=== PATIENT | female | born 1965 | race Caucasian/White ===

== ENCOUNTER 2024-10-04 08:52 | Inpatient (IN) | payer OTHER, SELFPAY ==
[2024-10-04] VITALS (59 sets, daily range): BP systolic 102–165; BP diastolic 60–96; BMI 30.6
[2024-10-04 06:24] LABS: Hematocrit 40.6 % (37.0-47.0); Hemoglobin 13.5 g/dL (12.0-16.0); Mean Corp Hgb Conc. 33.3 g/dL (33.0-37.0); Mean Corpuscular Volume 84.9 fL (81.0-99.0); Platelet Count 278 10^3/uL (130-400); Red Cell Dist. Width 13.2 % (11.5-14.5)
[2024-10-04 06:25] LABS: INR 0.94; PT 12.8 Sec (11.4-14.6)
--- NOTE | 2024-10-04 06:25 | ED.CVA ---
History of Present Illness
General
Chief Complaint: CVA/TIA Symptoms
Source: patient and spouse
Exam Limitations: none
Time Seen by Provider: 10/04/24 05:51
Onset of Stroke Symptoms
Onset of symptoms known: Yes
Date of onset of symptoms: 10/04/24
Time of onset of symptoms: 03:00
History of Present Illness
History of Present Illness:
58-year-old healthy female went to bed at midnight. Was fine at that time. Went to go to the bathroom around 3 or 3:30 in the morning noted some weakness and tingling to the left arm. By the time she got back to bed she had weakness in the left
leg and noted a left facial droop. She watched this for 45 minutes to an hour. Then talk to her who realized she had a left facial droop and called the ambulance at about 430. Symptoms improved significantly and route to the hospital and
then recurred. She now notes very minimal symptoms except for some tingling to the left arm. No history of similar episodes.
Past History
Past History
ED Past Medical History: Other (Sciatica); Negative Asthma, HTN, Hypercholesterolemia or NIDDM
ED Past Surgical History: None
Social History
Tobacco: Non-smoker
Alcohol: Occasional
Personal:
Living: with family
Employment: Employed
Phy Exam
Physical Exam
Physical Exam:
GENERAL: Alert and oriented in no apparent distress
EYE: Orbits normal.
NECK: Supple, no significant adenopathy.
ENT: Pharynx without erythema
CARDIAC: Regular rate and rhythm without any obvious murmurs.
LUNGS: Clear breath sounds,normal
ABDOMEN: Soft, without focal tenderness or distention
NEUROLOGICAL: Alert and oriented , grossly non-focal. Cranial nerves II through XII intact. Speech normal. No drift. Koakkk-oo-ykra normal. Eye confrontation normal. Extraocular muscles intact. Iidi-tr-cgzs normal. Straight leg raising
normal. Light touch intact. No extinction.
SKIN: Warm and dry, no rash or lesion, no discoloration, skin intact.
MUSCULOSKELETAL: No edema,no deformity.Good color
PSYCH: Normal and appropriate interaction.
Scores
NIH Stroke Score
Level of Consciousness: 0 - Alert
LOC Questions: 0-Answers both correctly
LOC Commands: 0-Performs both correctly
Best Horizontal Gaze: 0-Normal
Visual Cook: 0=Normal, no visual loss
Facial Palsy: 0=Normal, symmetrical
Motor - Right Arm: 0=No drift 10 seconds
Motor - Left Arm: 0=No drift 10 seconds
Motor - Right Le-No drift 5 seconds
Motor - Left Le-No drift 5 seconds
Limb Ataxia: 0-Absent
Sensation: 0-Normal
Best Language: 0-No aphasia
Dysarthria: 0-Normal
Extinction and Inattention: 0-No abnormality
NIH Total Score:: 0
Course
Orders/Labs/Results
Orders:
Orders
10/04/24 05:33
CT HEAD STROKE ALERT W/o Cont Urgent
Comment:
Reason For Exam: stroke alert
CT HEAD/NECK ANG STROKE ALERT Urgent
Comment:
Reason For Exam: pre hospital stroke alert
10/04/24 05:37
CT BRAIN PERF STROKE ALERT Urgent
Comment:
Reason For Exam: pre hospital stroke alert
10/04/24 05:49
Electrocardiogram (*1) Urgent
Reason for Study: Other
Other Reason for Exam: Possible Stroke
Bedside Glucose- Treatment ONCE
Cardiac Monitoring- Treatment ONCE
IV Insert/Care/Rem.- Treatment PRN
Vital Signs As Directed
Frequency: Other
Weight As Directed
Frequency: Once
Comment: ZERO STRETCHER SCALE FOR ACCURATE WEIGHT
10/04/24 05:50
EKG- Treatment ONCE
10/04/24 06:01
Complete Blood Count/With Diff Urgent
Comprehensive Metabolic Panel Urgent
PTT Urgent
Prothrombin Time Urgent
Troponin I Urgent
10/04/24 06:30
Aspirin Chewable [Low Strength Aspirin] 324 mg PO NOW STA
10/04/24 07:00
Clopidogrel Bisulfate [Plavix] 600 mg PO NOW STA
10/04/24 08:24
Tenecteplase [Tnkase] 20 mg Syringe [Syringe Non-Pump] 0 ml IV NOW
Provider explained risk/benefits to patient &/or caregiver?: Yes
Blood pressure: 130/78
10/04/24 08:42
Admit/Transfer Patient As Directed
Co-Sign Provider:
Level of Care: Inpatient admission
Assign to:: ICU
Physician / Group: Nirmal
Diagnosis: Crescendo TIA
Reason for Hospitalization: See progress note
Expected length of stay greater than two midnights?: Yes
ELOS- Estimated Length of Stay in days: 3
I certify the patient meets the requirements for IP care: Yes
Code Status As Directed
Resuscitation Status: Full Code
PRN Pain Medication Management As Directed
May give lesser potent ordered pain med per pt: Yes
preference::
Protocol:: Medication orders for pain may be administered in a
manner that supports deferring to patient preference
when the pt is:
- Requesting an ordered lesser potent pain medication.
Least to most potent pain medications are defined
as: acetaminophen < NSAID < tramadol < opioids
(morphine, oxycodone, hydromorphone).
- Requesting a lesser dose of the same medication IF
ORDERED.
- Requesting a less intrusive route of administration
if both routes are prescribed by the provider (PO <
IV).
10/04/24 09:15
Acetaminophen [Tylenol] 650 mg PO Q4HPRN PRN
Labetalol HCl [Trandate] 5 mg IV Q6HPRN PRN
10/04/24 09:15
Echo 2D MMode Color/Doppler Routine
Reason for Study: stroke/TIA
Electrocardiogram (*1) Routine
Reason for Study: TIA/Stroke
Case Management Consult Once
Case Management Consult: Discharge Planning
DIETARY IP CONSULT Routine
Reason for Consult: stroke/TIA
Telephone Maintainer Consult Routine
Consulting Provider: Garcia Jones
Was physician already notified: Yes
Reason for consult: Post TPA tx
NEUROLOGY CONSULT Urgent
Consulting Provider: Walker Macdonald
Was physician already notified: Yes
Reason for consult: TIA
Flakeboard Line Tender Urgent
MR Brain Without Contrast Routine
Comment: complete 24 hrs post tenecteplase administration
Reason For Exam: possible stroke, status post tenecteplase
Recent pill cam endoscopy?: No
Hemetest Stools As Directed
Comment: hemoccult all stools if patient received tenecteplase
NIH Stroke Scale As Directed
Directions: Other
Comment: NIH stroke Scale to be completed prior to thrombolytic administration, then every 1 hour for 2
hours, then every shift and with change in condition and/or mental status.
Neurological Checks As Directed
Frequency: Per unit guidelines
Additional Instructions:: after start of thrombolytic therapy:
q15min x 2 hrs, q30min x 6 hrs, q1h x 16 hrs, q4h x 24 hrs, then every shift and
with any changes.
Notify MD As Directed
Notify physician if: - Any deterioration, change in neurological status, development of severe headache,
nausea and vomiting, or with any signs of bleeding. (see guidelines for suspected
intracerebral hemorrhage).
- If intracranial hemorrhage is suspected or confirmed by imaging, anticipate need for
osmotic diuretic to maintain euvolemia.
Notify MD As Directed
Notify physician if: Glucose less than 70 or greater than 180.
Anticipate corrective insulin orders.
Notify MD As Directed
Notify physician if: SBP not at goal within 30 minutes of prn LABETALOL administration.
notify provider to initiate continuous infusion of nicardipine or clevidipine.
Notify MD As Directed
Notify physician if: unable to obtain MRI of head within 22-32 hours of tenecteplase administration
- contact Neurology for order for CT of head without contrast
Patient Education As Directed
Type: Stroke education packet
Comment: provide to patient and family
Precautions As Directed
Type of Precautions: Bleeding
Comment: post Bleeding Precaution sign at bedside (if patient received tenecteplase)
Swallow Screening CVA/TIA ONLY As Directed
Comment: NPO until swallow screening completed
If patient FAILS swallow screening:: NPO and Speech consult and aspiration precautions
If patient PASSES swallow screening, diet:: Cholesterol Lowering
Thrombolytic Precautions As Directed
Thrombolytic Precautions:: Baylis bleeding precautions. Minimize invasive procedures and venipunctures,
avoid IM injections and over-handling patient, and check all puncture sites for
bleeding. Assess the patient and notify provider for signs and symptoms of
internal or serious bleeding, such as changes in vital signs or evidence of blood
in the urine or stool.
Additional instructions: Hemocult all stools.
Apply direct pressure or pressure dressing to any compressible puncture sites.
No ABG sampling or Dawson insertion after Tenecteplase administration for 24 hours,
unless directed by the Neurologist/Attending.
Vital Signs As Directed
Frequency: q15m
Call for:: BP greater than 180/105 mmHg or less than 100/60 mmHg
Additional Instructions:: after start of thrombolytic therapy:
q15min x 2 hrs, q30min x 6 hrs, q1h x 16 hrs, q4h x 24 hrs, then every shift and
with any changes.
CR Chest - 2 Views Urgent
Comment:
Reason For Exam: stroke/TIA
Ot Eval And Treat Routine
Physiatry Consult Routine
Consulting Provider: Tapan Carrasco
Was physician already notified: Yes
Reason for consult: stroke/TIA
Pt Eval And Treat Routine
Activity Level: As Tolerated
Speech Therapy Eval & Treat Routine
DX Deep Vein Thrombosis Video Routine
10/05/24 06:00
Basic Metabolic Panel IN AM
Cardiovascular Evaluation IN AM
Complete Blood Count/No Diff IN AM
Glycohemoglobin (HgbA1c) IN AM
Comment: If not done in the ED
PTT IN AM
Prothrombin Time IN AM
10/05/24 08:42
Pneumatic Compression Sleeves As Directed
Type: Knee high
Abnormal Lab Results
10/04/24
06:01
Absolute Lymphs (auto) 5.3 H 10^3/uL
(1.2-3.4)
Neutrophils % 36.2 L %
(42.2-75.2)
Lymphocytes % 53.9 H %
(20.5-51.1)
Sodium 134 L mmol/L
(135-145)
Glucose 100 H mg/dl
(70-99)
Total Protein 5.7 L g/dl
(6.3-8.2)
10/04/24 06:01
10/04/24 06:01
Vital Signs
Initial and Last Documented VS:
Initial Vital Signs
BP
153/77
10/04/24 05:34
Last Documented Vital Signs
Temp Pulse Resp BP Pulse Ox
98.2 F 62 15 152/85 97
10/04/24 06:28 10/04/24 10:00 10/04/24 10:00 10/04/24 10:00 10/04/24 10:00
MDM/Problems Addressed
Differential Diagnosis Includes:
Patient presenting with waxing and waning strokelike symptoms. Currently her NIH is 0 to me though although subjectively she has some tingling in the left arm. At this time would not be a thrombolytic candidate. Head CT shows no bleed. I had
contacted pending further involvement.
*Pulse Oximetry
Oxygen Mode of Delivery: Room air
Patient hypoxic: no (98)
*Critical Care Note
Total Time (30-74mins, 75-104mins- exclusive of procedures): 50
Update Note
Update Note:
0650... While discussing with pain and recontacting them, patient symptoms recurred with a mild left facial droop left arm weakness and mild left leg weakness. While I was discussing with Esvin he symptoms actually resolved again. Very waxing and
waning symptoms. This was a wake-up issue at 3 AM with left arm symptoms followed by core progression of the left leg and left facial and speech issues. Moderate plaque with 50 to 70% narrowing.
0720... Multiple phone calls placed with our neurology, or hospitalist, previous calls with Esvin. Currently her NIH is 0. She does have some subjective tingling to the left arm but she appears well. Stable vital signs.
0825... Patient was seen by neurology. Her symptoms had recurred again about 15 to 20 minutes ago. NIH is about 3. Slight left facial droop left arm drift and slight left leg drift. With ongoing waxing and waning symptoms neurology recommended
TNK. There has been multiple discussions and patient and family are aware of the 5% bleed rate.
ED Attending Note
-
Portions of this chart may have been created with voice recognition software.� Occasional wrong word or��sound alike� substitutions may have occurred due to the inherent limitations of voice recognition software.
Discharge Plan
Departure
Patient Disposition: Admit
Date of Disposition: 10/04/24
Time of Disposition: 07:13
Presentation/result/management discussed w/ accepting MD/DO: neuro
Discharge Problem:
CVA/crescendo TIA, Moderate carotid disease
Interventions
Interventions:
*General Assessment Last Done: 10/04/24 06:16
*Neglect/Abuse Screening Last Done: 10/04/24 06:16
*ED- Fall Risk Assessment Last Done: 10/04/24 06:18
*ED COVID-19 Vaccine History Last Done: 10/04/24 07:07
*Nursing Disposition Last Done: 10/04/24 09:10
ED- Pulmonary Assessment Last Done: 10/04/24 06:10
ED- Neurological Assessment Last Done: 10/04/24 08:26
ED- Cardiac Assessment Last Done: 10/04/24 06:10
ED Swallowing Screen Last Done: 10/04/24 06:26
Discharge Date and Time
Discharge Date/Time: 10/04/24 09:10
[2024-10-04 06:26] LABS: APTT 29.8 Sec (23.4-35.0)
[2024-10-04 06:37] LABS: ALT (SGPT) 12 U/L (0-35); AST (SGOT) 20 U/L (14-36); Albumin 3.6 g/dl (3.5-5.0); Alkaline Phosphatase 57 U/L (38-126); Blood Urea Nitrogen 17 mg/dl (7-17); Calcium 8.6 mg/dl (8.4-10.2); Carbon Dioxide 24 mmol/L (22-30); Chloride 104 mmol/L (98-107); Glucose 100 mg/dl (70-99); Potassium 4.3 mmol/L (3.5-5.1); Sodium 134 mmol/L (135-145); Total Protein 5.7 g/dl (6.3-8.2); eGFR > 60.00
[2024-10-04] MEDS: LOW STRENGTH ASPIRIN 324 MG PO (06:41)
[2024-10-04 06:44] LABS: Troponin I < 0.012 ng/ml
[2024-10-04] MEDS: PLAVIX 600 MG PO (07:04)
[2024-10-04 07:55] LABS: Nucleated Red Blood Cells % 0 %
--- NOTE | 2024-10-04 08:10 | CON.NEURO ---
Neuro Assessment/Plan
Assessment
CTA head/neck imgs and rept rev'd, mild atherosclerotic plaque on b/l extracranial carotids, moderate plaque b/l intracranial carotids, mild beaded appearance suggestive of mild fibromuscular dysplasia - absence of HTN history
CT perfusion core 0, penumbra 0
58 year old healthy woman crescendo TIA. this would most likely represent a vessel that is partly/intermittently occluding and opening up again, and is an imminent stroke risk
with her now worsening again, decision to treat with TNK ~8:05 am
this is based on new data from last year, demonstrating benefit with TNK in the 4.5-24 hr window based on favorable CTP findings
in her case, 0 cc core infarct at risk of bleeding
Plan
Admit to MICU for 24 hours of frequent neurochecks.�
neurochecks q1, Frequent vital signs Q15min x 2hrs, then Q30min x 6hrs, then Q1H x 16hrs until stable from the start of TNK.�
�tele, accuchecks/ISS. Repeat Head CT in 24 hours
Blood pressure goals: <180/105 and MAP 80-100� in the acute period.� If BP elevated for 2 readings, preferred agents include IV labetalol or nicardipine.� Vasopressors as necessary to maintain MAP and CPP.�
Glucose goals: Maintain euglycemia using sliding scale insulin. If glucose >180 for two consecutive readings, please use MICU insulin protocol.�
Temperature goals: maintain normothermia�
Diagnostic tests: MRI brain without contrast, ECHO with bubble.�
35' crit examining patient, reviewing imaging, discussing risks/benefits of TNK, independently reviewing imaging, discussing with Dr Dukes,
Consultation
Order
Date of Consultation: 10/04/24
Requesting Provider: Ernst
Reason for Consult: stroke alert
Subjective/Objective
Subjective Data
Date of Service: October 04, 2024
from ED notes:
58-year-old healthy female went to bed at midnight. Was fine at that time. Went to go to the bathroom around 3 or 3:30 in the morning noted some weakness and tingling to the left arm. By the time she got back to bed she had weakness in the left
leg and noted a left facial droop. She watched this for 45 minutes to an hour. Then talk to her who realized she had a left facial droop and called the ambulance at about 430. Symptoms improved significantly and route to the hospital and
then recurred. She now notes very minimal symptoms except for some tingling to the left arm. No history of similar episodes.
5:58 am Chun reported that patient no LVO, perfusion no core infarct, no penumbra, was discussed with the [place] neuro intervention felt not to be a thrombectomy candidate
her symptoms worsened and essentially resolved multiple times. I spoke to Dr Dukes ~7:15 am and patient subjectively symptomatic, NIHSS 0. She received ASA and Plavix.
~7:55 am patient reports her symptoms began worsening again, NIHSS 3 to my exam, and we decided to give TNK for diagnosis of crescendo tia
Objective Data
Vital Signs
Temp Pulse Resp BP Pulse Ox
36.8 C 68 15 130/78 98
10/04/24 06:28 10/04/24 06:56 10/04/24 06:56 10/04/24 06:56 10/04/24 06:56
Lab Results
10/04/24 06:01
10/04/24 06:01
PT 12.8 Sec (11.4-14.6) 10/04/24 06:01
INR 0.94 10/04/24 06:01
APTT 29.8 Sec (23.4-35.0) 10/04/24 06:01
Sodium 134 mmol/L (135-145) L 10/04/24 06:01
Potassium 4.3 mmol/L (3.5-5.1) 10/04/24 06:01
BUN 17 mg/dl (7-17) 10/04/24 06:01
Glucose 100 mg/dl (70-99) H 10/04/24 06:01
Calcium 8.6 mg/dl (8.4-10.2) 10/04/24 06:01
Patient Allergies
No Known Allergies Allergy (Verified 08/19/20 16:52)
CVA Assessment
Onset of Stroke Symptoms
Time pt last seen normal is known: Yes
Date last time pt seen normal: 10/04/24
Time last time pt seen normal: 00:00
NIH Stroke Score
Level of Consciousness: 0 - Alert
LOC Questions: 0-Answers both correctly
LOC Commands: 0-Performs both correctly
Best Horizontal Gaze: 0-Normal
Visual Cook: 0=Normal, no visual loss
Facial Palsy: 1=Minor paralysis
Motor - Right Arm: 0=No drift 10 seconds
Motor - Left Arm: 1=Drift < 10 seconds
Motor - Right Le-No drift 5 seconds
Motor - Left Le-Drift < 5 seconds
Limb Ataxia: 0-Absent
Sensation: 0-Normal
Best Language: 0-No aphasia
Dysarthria: 0-Normal
Extinction and Inattention: 0-No abnormality
NIH Total Score:: 3
Physical Exam
-
AAOx3
left facial droop
left arm and leg 5-/5, right side full strength
sensation intact
Medications
-
Active Medications
Generic Name Dose Route Start Last Admin
Trade Name Freq PRN Reason Stop Dose Admin
Tenecteplase 20 mg/ Device 4 mls @ 2,880 mls/hr 10/04/24 08:04
IV 10/04/24 08:05
NOW STA
Protocol
Home Medications
�Medication �Instructions �Recorded
oxycodone-acetaminophen 5 mg-325 1 tab PO Q6HPRN PRN pain #20 tabs 03/21/20
mg tablet
prednisone 20 mg tablet 40 mg (2 x 20 mg) PO DAILY 08/19/20
Anti-inflammatory #8 tabs
[2024-10-04] MEDS: TNKASE 4 MG IV (08:34)
--- NOTE | 2024-10-04 08:45 | HPS.HSE ---
Family Physician
-
Family Physician: Isaac Baum
Chief Complaint
-
Left-sided heaviness and tingling with left facial droop
History of Present Illness
58-year-old with no active medical issues presented with acute onset of neurological symptoms.
She went to bed okay. She got up at around 3:00 AM today and she thinks she felt the left arm was heavy. She used the right arm to get herself up and went to the bathroom. She was okay on the feet.
When she came back onto the bed she felt her left leg was heavy and she was trying to rub it with the right leg. She started to get panicky and started to mumble. Called her and asked him to check her out if anything is abnormal and he saw
the left side of the face was droopy.
He called the ambulance. By the time ambulance came her symptoms mostly resolved.
She developed similar symptoms in the ER and resolved again. Since that incident in the ER she says she has recurrent similar complaints 3 times now.
Seen by neurology just now who noticed the left face to be droopy which is confirmed by the patient and the . She felt that her left arm was still heavy. The left leg is okay.
She had a CT of the head which did not show any bleeding. She had a CT of the head and neck which showed no retrobulbar clot.
Decision was made by neurology for tenecteplase due to crescendo TIA and the current NIH being 3.
No headache. No vision problem. No speech impairment.
No prior history of TIA or stroke. No recent head trauma. Right-handed.
No recent medical issues. She has chronic back pain issues and had low back surgery.
Medical History
Past Medical History
Past Medical History: Reports None
Past Surgical History: Reports Orthopedic (Low back surgery)
Social History
Tobacco: Non-smoker
Alcohol: None
Personal:
Living: With Family
Family History
Family History: Not pertinent
Allergies / Home Medications
Allergies reflects when Allergies were last updated in [facility].
Home Medications with original date entered in [facility]
Allergy/Medication List:
Allergies
Allergy/AdvReac Type Severity Reaction Status Date / Time
No Known Allergies Allergy Verified 08/19/20 16:52
Home Medications
oxycodone-acetaminophen 5 mg-325 mg tablet 1 tab PO Q6HPRN PRN pain #20 tabs 03/21/20
prednisone 20 mg tablet 40 mg (2 x 20 mg) PO DAILY Anti-inflammatory #8 tabs 08/19/20
Review of Systems
-
A 12 point ROS was completed and negative except as noted: Yes
Physical Exam
Vital Signs
Vital Signs
Temp Pulse Resp BP Pulse Ox
98.2 F 68 16 133/78 98
10/04/24 06:28 10/04/24 08:35 10/04/24 08:35 10/04/24 08:35 10/04/24 06:56
Physical Exam
General: Comfortable
HEENT: Moist mucous membranes
Respiratory: Clear and Non Labored Respirations; No Accessory Resp Muscle Use
Cardiac: S1/S2 and Regular Rhythm; No Tachycardia
GI: Soft, Non Tender and No Hepatosplenomegaly
Musculoskeletal: No Edema
Neuro: AO x 3 and Facial Droop (mild left facial ); No No Motor Deficits (left hand cement worker 4+/5 compared to right which was 5/5; BL LE 5/5 . Plantars equivocal BL. )
Psych: Calm; No Confused
Laboratory Results
-
10/04/24 06:01
10/04/24 06:01
Laboratory Results
PT 12.8 Sec (11.4-14.6) 10/04/24 06:01
INR 0.94 10/04/24 06:01
APTT 29.8 Sec (23.4-35.0) 10/04/24 06:01
Total Bilirubin 0.3 mg/dl (0.2-1.3) 10/04/24 06:01
AST 20 U/L (14-36) 10/04/24 06:01
ALT 12 U/L (0-35) 10/04/24 06:01
Alkaline Phosphatase 57 U/L (38-126) 10/04/24 06:01
Troponin I < 0.012 ng/ml 10/04/24 06:01
Data Reviewed
-
CT Scan: Report Reviewed by me (CT head;CTA head and neck)
Lab Data: Labs Reviewed by me
Impression/Plan
-
Crescendo TIA
Patient presents with recurrent episodes of TIA so far 5 involving the left facial droop and left upper and lower extremity heaviness and weakness. NIH is [address] of the head shows no evidence of stroke. CTA of the head and neck shows bilateral intracranial ICA narrowing of 50 to 70% but no evidence of large vessel occlusion. CT perfusion is okay.
Condition made for thrombolysis. Tenecteplase given in the ER.
Admit to ICU and follow-up post thrombolysis protocol. Hold aspirin and Plavix for 24 hours. No lab draws for 24 hours. Follow blood pressure closely and treat more than 185/105.
Continuous avionic technician.
MRI of the brain without contrast when able today
Start on high intensity statins
Echocardiogram routine
Watch for any bleeding complication.
Neurology consultation
DVT prophylaxis - none for 24hr ;pt received Tenecteplase
--- NOTE | 2024-10-04 09:10 | CM ---
Addendum entered by Jenna Perry 10/04/24 11:54:
Advance directive packet provided to patient.
Original Note:
CM reviewed chart and met with pt and daughter bedside in ED. Lives with in trilevel home, no NANCY, 5 steps to main level with half BA, approximately 13 total steps to third level BR, full BA.
Independent in ADLs, personal care and ambulation at baseline, drives.
Confirms prescription coverage.
No hx VN or SNF.
PCP: Isaac Baum
Pharmacy: [facility]
Anticipate discharge home, CM will continue to follow for any discharge planning needs
--- NOTE | 2024-10-04 09:40 | CON.INTV ---
Consultation
Consultation Request
Date/Time Consultation Requested: 10/04
Date/Time Consultation Performed: 10/04
Reason for Consultation: Critical care
Medical History
-
History of Present Illness:
History obtained from the patient and reviewing medical records/ER records. Patient is a 58-year-old female who presented with acute onset of weakness and tingling in the left arm. She then noticed left leg weakness and then a left facial droop
around 3:30 in the morning. She observed this for about 45 minutes, and then called the ambulance at around 4:30 AM. Symptoms improved en route but then recurred. Upon arrival to [facility], afebrile, pulse 68, breathing at 15, blood
pressure 157/77, 98%. NIH 0 but symptoms appear to progress with waxing and waning symptoms. Patient was seen by neurology, symptoms recurred, NH3. Neurology recommended TNK which was administered at around 8:05 AM. Patient admitted to ICU for
further management
Of note, imaging reviewed. Comment on 50 to 70% intracranial ICA stenosis bilateral, beaded appearance noted. No cerebral parenchymal abnormality
Presently, patient denies any shortness of breath, chest pain, nausea, headaches, vision issues. She continues to have waxing and waning left arm tingling and heaviness but denies left lower extremity symptoms, and there does not appear to be any
facial droop at this time
.
PMH: History of sciatica, history of lower back surgery
Past Medical History
Past Medical History: None (See above)
Past Surgical History: None (See above)
Social History
Tobacco: Non-smoker
Alcohol: Occasional
Drug: None
Personal:
Living: With Family
Employment: Employed (Helps clean houses for the elderly)
Family History
Family History: Other (Unremarkable)
Allergies / Home Medications
Allergies
Allergy/AdvReac Type Severity Reaction Status Date / Time
No Known Allergies Allergy Verified 08/19/20 16:52
Home Medications
�Medication �Instructions �Recorded �Confirmed �Last Taken �Type
oxycodone-acetaminophen 5 mg-325 1 tab PO Q6HPRN PRN pain #20 tabs 03/21/20 Unknown Rx
mg tablet
prednisone 20 mg tablet 40 mg (2 x 20 mg) PO DAILY 08/19/20 Unknown Rx
Anti-inflammatory #8 tabs
Review of Systems
-
All other systems: Negative unless noted
Vitals / Labs / Diagnostic Testing
Vital Signs
Temp Pulse Resp BP Pulse Ox
98.2 F 60 16 133/63 98
10/04/24 06:28 10/04/24 09:05 10/04/24 09:05 10/04/24 09:05 10/04/24 06:56
Lab Data
10/04/24 06:01
10/04/24 06:01
Laboratory Results
10/04/24
06:01
PT 12.8
INR 0.94
APTT 29.8
Diagnostic Testing:
Physical Exam
-
HEENT: Normocephalic and Anicteric
Cardiovascular: S1/S2, Regular Rhythm, Murmur (n), Rub (n), Peripheral Edema (n) and Calf Tenderness (n)
Respiratory: Wheeze (n), Rales (n), Rhonchi (n) and Non-Labored Respirations
GI: Soft, Non Distended and Non Tender
Neurology: Awake, Alert and No Motor Deficits (Cannot appreciate any focal findings, cranial nerves appear to be grossly intact)
Skin: Good Color
General: Comfortable
Assessment
-
58-year-old female without medical history presents with acute onset left arm tingling/heaviness/weakness along with left leg weakness, left facial droop, waxing and waning started around 3:30 AM
Given progressive symptoms, TNK was administered at approximately 8:05 AM, admitted to ICU for further monitoring
Crescendo TIA
Imminent stroke risk per neuro
S/p TNK approx 805 am per neuro
Left arm weakness/tingling
Intermittent left lower extremity symptoms
Intermittent left facial droop
50 to 70% bilateral ICA stenosis
Beaded appearance per imaging
Conditions present prior to admission
History of sciatica
History of back surgery
Plan/recommendations
At this time, patient appears to have waxing and waning symptoms
Presently without headaches, nausea, vision changes
She does have some waxing and waning left arm tingling and heaviness
No facial droop on exam at this time
Imaging reviewed
Moving forward
Continue with management post TNK
Neurochecks
Await repeat imaging in 24 hours
Check blood sugar
Monitor blood pressure
Sequential teds for DVT prophylaxis
Monitor for bleeding
Reviewed with critical care nursing
Reviewed with patient
Will follow
TCCT 31 min
--- NOTE | 2024-10-04 09:49 | TRANSFER ---
Pt rec'd into ICU Room 3362 from ED at 09:15, pulled over to bed. Handoff NIHSS performed with ED RN, score 0. Pt AOx3. Oriented to room and plan of care. Neuro checks per protocol ongoing, see worklist. Admission and assessment as documented.
Daughter at bedside. Care ongoing, safe environment maintained.
[2024-10-04 10:33] LABS: Glucose - Point of Care 95 mg/dl (70-99)
--- NOTE | 2024-10-04 11:20 | PTOTSP ---
Speech Therapy Evaluation
Pt seen for bedside swallow evaluation and cognitive-communication assessment. Pt admitted with dx of crescendo TIA. Recurrent episodes of TIA with L sided facial droop and L upper/lower extremity heaviness. Results of oral motor exam reveal
adequate strength, ROM, and coordination of oral structures with no observable L sided weakness. Pt managed regular solids and thin liquids with no overt s/sx of aspiration. Per pt report, L sided weakness comes and goes. Pt educated on
recommendation of regular solids and thin liquids given no facial weakness/numbness and adherence to general aspiration precautions.
Pt scored 26/30 on MOCA (25-30 described as normal) yielding skills that are within functional limits. Pt demonstrated mild visuospatial deficits, including connecting number/letter in an alternating pattern and copying a cube. Pt engaged in
conversation with no apparent word finding, dysarthria, or apraxia of speech. No phonemic or semantic paraphasias.�
Recommendations:
1. IDDSI 7 regular solids, IDDSI 0 thin liquids
2. Meds as tolerated
3. General aspiration precautions
4. Speech f/up x1-2 to ensure tolerance of regular solids and thin liquids as pt reports intermittent facial tingling/weakness which was not observed during evaluation
--- NOTE | 2024-10-04 15:09 | PTCARENOTE ---
Pt remains AOx3, NIHSS and neuro checks ongoing, please see flowsheet. No complaints at this time. Pt visiting with family at bedside, ate 100% of lunch tray, now watching TV. MRI dept called up to inform RN that they would like to scan pt between
7-7:30 tomorrow am. Pt is extremely nervous about MRI and endorses claustrophobia. Drs. Jones and Nirmal notified via TT. Safe environment maintained.
--- NOTE | 2024-10-04 15:27 | PTCARENOTE ---
Scattered bruising to right arm noted, one on forearm and 3 on upper right arm. Pt does not recall hitting it or bumping it. BP cuff has been on left arm since before noon. Will continue to monitor.
--- NOTE | 2024-10-04 21:05 | PTCARENOTE ---
Handoff report received from off going RN. Dual RN NIHSS assessment completed. NIH 0. Symmetrical smile and tongue midline. Speech is clear. Plan of care for the shift reviewed with the patient. Patient verbalized concerns with MRI and feeling
anxious. Teaching provided and prn order reviewed with the patient for MRI. LESLIE x4. NSR on the monitor. Breath sounds are CTA. Scattered bruises to bilateral upper arms. Pt's able to turn and reposition herself. Call ng and personal belonging are
within reach.
[2024-10-05] VITALS (27 sets, daily range): BP systolic 105–162; BP diastolic 58–99; PULSE 66–68; BMI 30.5
[2024-10-05 05:18] LABS: Hematocrit 38.0 % (37.0-47.0); Hemoglobin 12.7 g/dL (12.0-16.0); Mean Corp Hgb Conc. 33.4 g/dL (33.0-37.0); Mean Corpuscular Volume 84.8 fL (81.0-99.0); Platelet Count 283 10^3/uL (130-400); Red Cell Dist. Width 13.3 % (11.5-14.5)
[2024-10-05 05:31] LABS: INR 0.99; PT 13.4 Sec (11.4-14.6)
[2024-10-05 05:32] LABS: APTT 28.8 Sec (23.4-35.0)
[2024-10-05 06:32] LABS: Blood Urea Nitrogen 15 mg/dl (7-17); Calcium 9.3 mg/dl (8.4-10.2); Carbon Dioxide 26 mmol/L (22-30); Chloride 110 mmol/L (98-107); Estimated Creatinine Clearance 106 ml/min; Glucose 95 mg/dl (70-99); HDL Cholesterol 66 mg/dl; LDL Cholesterol, Calculated 160 mg/dl; Potassium 4.5 mmol/L (3.5-5.1); Sodium 140 mmol/L (135-145); Very Low Density Lipoprotein 22 mg/dl (0-30); eGFR > 60.00
[2024-10-05] MEDS: ATIVAN 1 MG PO (06:34)
--- NOTE | 2024-10-05 07:15 | W.PN.INTV ---
Today's Communication / Plan
Recommendations
Continue with risk factor modification for stroke
Consider outpatient HST
Statin, antiplatelet therapy continue
Blood sugars, blood pressure stable
For transfer out of ICU. We will sign off. Please call with questions
Assessment
-
58-year-old female without medical history presents with acute onset left arm tingling/heaviness/weakness along with left leg weakness, left facial droop, waxing and waning started around 3:30 AM
Given progressive symptoms, TNK was administered at approximately 8:05 AM, admitted to ICU for further monitoring
Crescendo TIA
Imminent stroke risk per neuro
S/p TNK approx 805 am per neuro
Left arm weakness/tingling
Intermittent left lower extremity symptoms
Intermittent left facial droop
50 to 70% bilateral ICA stenosis
Beaded appearance per imaging
Conditions present prior to admission
History of sciatica
History of back surgery
Plan/recommendations
At this time, patient feels she is back to her baseline
Presently without headaches, nausea, vision changes
Denies any neurological symptoms
No facial droop on exam at this time
Brain MRI pending
Moving forward
Continue with management post TNK
Await report of brain MRI
Blood sugar, blood pressure stable
Sequential teds for DVT prophylaxis
Monitor for bleeding
Discussed potential for sleep apnea screening as outpatient, home sleep study
This will be deferred to her primary physician
Patient transferred to telemetry. We will sign off. Please call with questions
Subjective Dataa
Subjective Data
Date of Service:
Date of Service: October 05, 2024
Subjective:
Patient feels good. Denies any shortness of breath, chest pain, headaches. Denies any blood in urine or stool
Objective Data
Data Reviewed
Vital Signs / I&O / Oxygen:
Vital Signs
Temp Pulse Resp BP Pulse Ox
98.6 F 58 15 132/69 95
10/05/24 03:07 10/05/24 07:00 10/05/24 07:00 10/05/24 07:00 10/04/24 19:20
Intake and Output
10/04/24 10/05/24 10/06/24
06:59 06:59 06:59
Intake Total 358 / 358
Output Total 1275 / 1275
Balance -917 / -917
SaO2 95
Physical Exam
General: Comfortable
HEENT: Normocephalic and Anicteric
Cardiovascular: S1-S2, Regular Rhythm, Murmur (n) and Rub (n)
Respiratory: Wheeze (n), Crackles (n), Rhonchi and Non-Labored Respirations
GI: Soft and Distended
Neurology: Awake, Alert and No Motor Deficits (Moving extremities)
Skin: Good Color, Cyanosis (n) and Bruising (Mild)
Labs/Micro/Reports
Lab Data
10/05/24 05:05
10/05/24 06:00
Laboratory Results
10/05/24
05:05
PT 13.4
INR 0.99
APTT 28.8
--- NOTE | 2024-10-05 08:35 | PTCARENOTE ---
Pt was rec'd in report from night RN, NIHSS and neuro checks ongoing per protocol, see flowsheet. Pt was given Ativan as ordered at 06:30. She is AOx3 calm and comfortable, states 'this is a very nice feeling!' Pt transported to MRI dept by RN at
07:30. Tolerated well, returned to room, placed back on tele monitor, now ordering breakfast. NIHSS performed, score 0. Call ng in hand, no needs at this time.
--- NOTE | 2024-10-05 08:54 | W.PN.HOSP.TC ---
Today's Communication/Plan
-
Transfer to telemetry this afternoon
Assessment / Plan
Assessment / Plan
Crescendo TIA
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
Patient presents with recurrent episodes of TIA so far 5 involving the left facial droop and left upper and lower extremity heaviness and weakness. NIH is [address] of the head shows no evidence of stroke. CTA of the head and neck shows bilateral intracranial ICA narrowing of 50 to 70% but no evidence of large vessel occlusion. CT perfusion is okay.
Condition made for thrombolysis. Tenecteplase given in the ER.
No complication post tenecteplase so far.
MRI of the brain done report pending.
Bumped into neurology on the floor who recommends 325 mg of aspirin as arthrosclerosis involves larger arteries and Plavix 75 mg. He also recommends 90 days instead of 21 days because of large vessel intracranial atherosclerosis.
Continuous phototypesetting equipment monitor.
Start on high intensity statins
Echocardiogram routine
Transferred to telemetry
DVT prophylaxis -Lovenox
Discussed with HAMMERER HELPER
Total time spent on today's encounter was 52 minutes which included time spent in counseling the patient/family regarding diagnosis and treatment plan as listed above, goals of care, and symptom management. Case was discussed with nursing staff,
specialists, and care coordinators/case management. All labs and imaging personally reviewed by me. Remainder the time spent in detailed review of previous records, lab data, imaging, and other medical provider documentation.
Anticipated Discharge: 24 - 48 hours
Subjective/Interval History
-
Date of Service: October 05, 2024
Resolved neurological symptoms without recurrence.
She tells me today that that she cooks with olive oil, butter and coconut oil and was wondering if that has any relation to her hyperlipidemia. Advised to eliminate butter and coconut oil use with cooking.
No headache.
No nausea vomiting.
No shortness of breath or chest pain.
No dizziness.
Objective Data
-
Labs:
Laboratory Results
10/05/24 10/05/24
05:05 06:00
WBC 9.3
Hgb 12.7
Hct 38.0
Plt Count 283
PT 13.4
INR 0.99
APTT 28.8
Sodium Cancelled 140
Potassium Cancelled 4.5
Chloride Cancelled 110 H
Carbon Dioxide Cancelled 26
BUN Cancelled 15
Creatinine Cancelled 0.6
Glucose Cancelled 95
Calcium Cancelled 9.3
Vital Signs:
Vital Signs
Temp Pulse Resp BP Pulse Ox
98.6 F 61 11 122/68 95
10/05/24 03:07 10/05/24 08:35 10/05/24 08:35 10/05/24 08:35 10/04/24 19:20
I&O
10/04/24 10/05/24 10/06/24
06:59 06:59 06:59
Intake Total 358 / 358
Output Total 1275 / 1275
Balance -917 / -917
Physical Exam
-
General: Comfortable
Respiratory: Non Labored Respirations; Negative Accessory Resp Muscle Use
Cardiac: Regular Rhythm and S1/S2; Negative Tachycardic
Neuro: AO x 3; Negative No Motor Deficits, Slurred Speech or Facial Droop (today)
Psych: Calm; Negative Confused
Data Reviewed
-
MRI: Report Reviewed by me (MRI brain pending)
Labs: Labs Reviewed by me
--- NOTE | 2024-10-05 09:26 | CM ---
patient seen at bedside
Transfer to telemetry this afternoon
PT/OT/ST ordered/pending
PLAN: home, CM to follow for any needs
[2024-10-05] MEDS: ASPIRIN 325 MG PO (09:36)
[2024-10-05] MEDS: PLAVIX 75 MG PO (09:36)
--- NOTE | 2024-10-05 09:44 | PTCARENOTE ---
Telemetry orders rec'd, pt placed on portable heart monitor.
--- NOTE | 2024-10-05 10:59 | W.PN.NEURO.1 ---
Today's Communication / Plan
-
downgrade
Neuro Assessment/Plan
Assessment
CTA head/neck imgs and rept rev'd, mild atherosclerotic plaque on b/l extracranial carotids, moderate plaque b/l intracranial carotids, mild beaded appearance suggestive of mild fibromuscular dysplasia - absence of HTN history
CT perfusion core 0, penumbra 0
MRI brain imgs rev'd, no evidence of acute stroke, report pending
HDL 66, LDL 160
58 year old healthy woman crescendo TIA, resolved after TNK
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
Plan
with large vessel disease, rx ASA 325 lifelong which has shown evidence trending towards improvement vs ASA 81.
90 days of plavix
Lipitor 80
discussed additional afib screening - she elects to be better about wearing apple watch
Subjective/Objective
Subjective Data
Date of Service: October 05, 2024
after TNK patient reports full resolution of symptoms
Objective Data
Vital Signs
Temp Pulse Resp BP Pulse Ox
37.0 C 55 11 121/69 100
10/05/24 03:07 10/05/24 09:30 10/05/24 09:15 10/05/24 09:00 10/05/24 09:00
Lab Results
10/05/24 05:05
10/05/24 06:00
PT 13.4 Sec (11.4-14.6) 10/05/24 05:05
INR 0.99 10/05/24 05:05
APTT 28.8 Sec (23.4-35.0) 10/05/24 05:05
Sodium 140 mmol/L (135-145) 10/05/24 06:00
Potassium 4.5 mmol/L (3.5-5.1) 10/05/24 06:00
BUN 15 mg/dl (7-17) 10/05/24 06:00
Glucose 95 mg/dl (70-99) 10/05/24 06:00
Calcium 9.3 mg/dl (8.4-10.2) 10/05/24 06:00
LDL Cholesterol, Calc 160 mg/dl 10/05/24 06:00
Patient Allergies
No Known Allergies Allergy (Verified 08/19/20 16:52)
Physical Exam
-
AAOx3, speech clear, language intact
VFF, EOMI, face symmetric
full strength b/l UE/LE, no pronator drift
[2024-10-05 12:04] LABS: Glycohemoglobin (HgbA1c) 5.6 % (4.0-5.6)
[2024-10-05] MEDS: LIPITOR 80 MG PO (16:47)
--- NOTE | 2024-10-05 20:25 | PTCARENOTE ---
on assessment pt AAOx3, NIH 0, denies pain and SOB, ambulates in the room, voids in toilet, family at bedside, call ng in reach
[2024-10-05] MEDS: MELATONIN 5 MG PO (23:21)
[2024-10-06] VITALS (38 sets, daily range): BP systolic 109–161; BP diastolic 62–130; BMI 29.8
--- NOTE | 2024-10-06 07:30 | PTCARENOTE ---
Received patient in sleep, arousable to voice, A&Ox4, NIH 0, on RA, NSR, BP WNL, GI/ continent.
[2024-10-06] MEDS: ASPIRIN 325 MG PO (08:03)
[2024-10-06] MEDS: PLAVIX 75 MG PO (08:03)
--- NOTE | 2024-10-06 11:00 | PTCARENOTE ---
Patient reported suddenly felt pins and needles sensation from her Left Elbow down to Left Fingers; Also reported suddenly Left Arm Heaviness. Performed NIH, scored 2. Notified Dr. Macdonald regarding new findings and MD ordered STAT CT Head.
[2024-10-06] MEDS: TNKASE 4 MG IV (11:55)
--- NOTE | 2024-10-06 11:59 | W.PN.NEURO.1 ---
Today's Communication / Plan
-
TNK again
cardiology consult for MICHAELA
check EEG
Neuro Assessment/Plan
Assessment
CTA head/neck imgs and rept rev'd, mild atherosclerotic plaque on b/l extracranial carotids, moderate plaque b/l intracranial carotids, mild beaded appearance suggestive of mild fibromuscular dysplasia - absence of HTN history
CT perfusion core 0, penumbra 0
MRI brain imgs rev'd, no evidence of acute stroke, report pending
HDL 66, LDL 160
58 year old healthy woman crescendo TIA, resolved after TNK
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
Plan
with large vessel disease, rx ASA 325 lifelong which has shown evidence trending towards improvement vs ASA 81.
90 days of plavix
Lipitor 80
discussed additional afib screening - she elects to be better about wearing apple watch
when seen this morning, we were awaiting an ECHO read, and she wanted to see dietary before discharge
After TNK, plan is for additional 24 hrs of ICU monitoring
no need for repeat head CT after 24' based on FIAT and other studies prior to giving ASA/Plavix as it has no clinical effect, and since stroke alert was not officially called, it will not be a fallout when data is abstracted
the ASA and Plavix she received this AM will be effective for several days anyways.
the fact that her several hours of crescendo TIA symptoms resolved within minutes of initial TNK would almost confirm the diagnosis. however I question if this was a seizure? check EEG
As this is now her second event in 2 days, I ordered an EEG, and consulted cardiology for MICHAELA
[id number] for initial follow up seen early this am
35' crit seeing patient immediately at 11:06-11:55 am upon recurrence of symptoms, repeated exams, interpeting STAT head CT, and decision to again give TNK
Subjective/Objective
Subjective Data
Date of Service: October 06, 2024
Seen this AM she was doing well and no further symptoms.
At 11:06 i was informed that at 11:00, patient developed L arm weakness/numbness/tingling, nurse got NIH 2 for arm and sensory. Stat head CT no bleed. Patient confirmed that on Sunday, all symptoms resolved a few minutes after TNK. I ordered TNK
again, by the time she got back to ICU she was feeling better and to my exam her left laboratory chief was weak, and L leg weak NIHSS1. treated with TNK again
Objective Data
Vital Signs
Temp Pulse Resp BP Pulse Ox
36.8 C 49 14 142/85 95
10/06/24 08:00 10/06/24 11:37 10/06/24 08:00 10/06/24 11:37 10/06/24 08:00
Lab Results
10/05/24 05:05
10/05/24 06:00
PT 13.4 Sec (11.4-14.6) 10/05/24 05:05
INR 0.99 10/05/24 05:05
APTT 28.8 Sec (23.4-35.0) 10/05/24 05:05
Sodium 140 mmol/L (135-145) 10/05/24 06:00
Potassium 4.5 mmol/L (3.5-5.1) 10/05/24 06:00
BUN 15 mg/dl (7-17) 10/05/24 06:00
Glucose 95 mg/dl (70-99) 10/05/24 06:00
Calcium 9.3 mg/dl (8.4-10.2) 10/05/24 06:00
LDL Cholesterol, Calc 160 mg/dl 10/05/24 06:00
Patient Allergies
No Known Allergies Allergy (Verified 08/19/20 16:52)
Physical Exam
-
AAOx3, speech clear, language intact,
VFF, EOMI, face symmetric
left laboratory chief and RLE 5-/5, otherwise full strength
sensation intact
--- NOTE | 2024-10-06 12:00 | PTCARENOTE ---
After STAT CT Head, Dr. Macdonald ordered TNK for new onset of stroke symptoms. Dr. Macdonald explained risks and benefits of TNK with patient at bedside. NIH reperformed, scored 3 for Left Arm Drift, Left Arm Decreased Sensation, Left Leg Drift. TNK given
@11:55.
--- NOTE | 2024-10-06 13:24 | W.PN.INTV ---
Today's Communication / Plan
Recommendations
- Repeating TNK
- Neurochecks per protocol
Assessment
-
58-year-old female without medical history presents with acute onset left arm tingling/heaviness/weakness along with left leg weakness, left facial droop, waxing and waning started around 3:30 AM. Given progressive symptoms, TNK was administered at
approximately 8:05 AM, admitted to ICU for further monitoring.
Patient had good response to TNK with resolution of her symptoms. On 10/06, patient had another episode of left upper weakness which somewhat improved but did not fully resolve. Neurology reevaluated the patient and decision was made to proceed
with a second round of TNK and patient was upgraded back to ICU status.
Conditions present prior to admission
History of sciatica
History of back surgery
Assessment and plan:
#1. Recurrent TIA with new deficit 10/06.
- Improved but with residual LUE weak wood craftsman and 4/5 motor function
- Neurology service re-evaluated 10/06 with plan for repeat TNK (2nd during this hospital stay). Stat CT head without acute change, hemodynamically stable
- MRI earlier this admission negative for acute CVA
- 50 to 70% bilateral ICA stenosis
- Neurochecks per protocol
#2. Carotid artery disease
- B/L 50-70% diameter stenosis on imaging
- Has been on ASA/Plavix and Statins.
Sequential Logan hose for DVT prophylaxis
Monitor for bleeding
Critical Care time 55 mins -- The patient is admitted for acute critical illness for the treatment of vital organ failure and/or prevention of further life-threatening conditions. Total care includes time spent in review of history, physical exam,
medications, hemodynamic/ventilator parameters, laboratory data, imaging and discussion with house staff, pharmacy, respiratory therapy, senior capital markets specialist, and nursing.
Subjective Dataa
Subjective Data
Date of Service:
Date of Service: October 06, 2024
Subjective:
Patient comfortably sitting in bed in no acute distress.
Review of Systems
Genitourinary: Other (All 14 systems reviewed and negative except as stated above in the history of present illness.)
Objective Data
Data Reviewed
Vital Signs / I&O / Oxygen:
Vital Signs
Temp Pulse Resp BP Pulse Ox
98.2 F 52 17 137/67 95
10/06/24 08:00 10/06/24 13:00 10/06/24 13:00 10/06/24 13:00 10/06/24 08:00
Intake and Output
10/05/24 10/06/24 10/07/24
06:59 06:59 06:59
Intake Total 358 / 358 1200 / 1200
Output Total 1275 / 1275
Balance -917 / -917 1200 / 1200
SaO2 95
Physical Exam
General: Comfortable
HEENT: Normocephalic and Anicteric
Cardiovascular: S1-S2, Regular Rhythm, Murmur (n) and Rub (n)
Respiratory: Wheeze (n), Crackles (n), Rhonchi and Non-Labored Respirations
GI: Soft and Distended
Neurology: Awake, Alert and Other (Left arm weakness noted, on follow-up exam, weakness improved with residual weak wood craftsman and 4 out of 5 power.)
Skin: Good Color and Cyanosis (n)
Labs/Micro/Reports
Lab Data
10/05/24 05:05
10/05/24 06:00
--- NOTE | 2024-10-06 13:52 | W.PN.HOSP.TC ---
Today's Communication/Plan
-
see bold
Assessment / Plan
Assessment / Plan
#Crescendo TIA
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
Patient presents with recurrent episodes of TIA so far 5 involving the left facial droop and left upper and lower extremity heaviness and weakness. NIH [address] of the head shows no evidence of stroke. CTA of the head and neck shows bilateral intracranial ICA narrowing of 50 to 70% but no evidence of large vessel occlusion.
Status post TNK 10/04
Status post repeat TNK 10/06
Appreciate neurology and compress trucker input, continue post tPA protocol
Continue Lipitor 80 mg at bedtime
Resume aspirin 325 mg and Plavix 75 mg when okay with neurology
EEG ordered, echocardiogram requested
Keep in ICU
DVT prophylaxis -Lovenox
Full Code
Updated son on phone 10/06
Total time spent to see the patient on the floor, examine the patient, review data and lab results, discuss treatment plan with patient, nursing staff around 45 minutes.
Physical Exam
General: No acute distress
HEENT: Normocephalic, Atraumatic, EOMI, MMM
Respiratory: Clear to Auscultation bilaterally
Cardiac: Normal S1/S2, Regular Rate and Rhythm
GI: Soft, Nontender, Nondistended, Normal Bowel Sounds
Extremities: No Clubbing, Cyanosis, or Edema
Neuro: Left-sided weakness noted
Anticipated Discharge: 24 - 48 hours
Subjective/Interval History
-
Date of Service: October 06, 2024
Patient started having left-sided weakness, paresthesia, with left arm drift noted this morning. She was seen by neurology, and given TNK again. No fever, no vomiting.
Objective Data
-
Vital Signs:
Vital Signs
Temp Pulse Resp BP Pulse Ox
98.5 F 90 13 123/72 100
10/06/24 00:33 10/06/24 04:00 10/06/24 04:00 10/06/24 04:00 10/05/24 09:00
I&O
10/05/24 10/06/24 10/07/24
06:59 06:59 06:59
Intake Total 358 / 358 1200 / 1200
Output Total 1275 / 1275
Balance -917 / -917 1200 / 1200
--- NOTE | 2024-10-06 14:23 | CM ---
Recurrent TIA today w deficit of LUE weak caddy and 4/5 motor function. Repeat TNK. Neurochecks. 50-70% B/L ICA stenosis. Discharge POC: Therapy recommendation for outpatient PT.
--- NOTE | 2024-10-06 14:30 | PTCARENOTE ---
Noticed patient's Left Upper Arm developed scattered and localized bruises where BP cuff was, switched BP cuff to Right Forearm.
--- NOTE | 2024-10-06 14:50 | CON.CAR ---
Addendum entered and electronically signed by Tapan Braga MD 10/06/24 19:51:
58-year-old woman admitted to [facility] 10/03/2024 with left upper extremity weakness and left facial droop who presented to [facility] with waxing and symptoms ultimately receiving TNK for right hemispheric CVA. Head and neck CTA suggest soft
plaque in both carotids with suspected fibromuscular dysplasia. Patient had an excellent clinical response but recurrent symptoms this morning and was again treated with TNK. Now feels well.
PMH: Sciatica, hypercholesterolemia, suspected visual migraines, history of back surgery
Remainder of history as below. Reviewed in detail and agree unless otherwise specified
Current meds: Aspirin 325 mg a day, Plavix 75 mg a day, atorvastatin 80 mg daily.
127/83, pulse 78, respiratory rate 19, weight is 78.8 kg, no distress head neck exam remarkable, neuro nonfocal lungs clear, regular rate and rhythm without obvious murmurs or gallops
Echo 09/2024: Borderline LVH with EF 60-65%, no significant valve abnormality, normal right heart, atherosclerosis of aortic arch maybe presents
ECG: Normal
CMP normal, CBC normal, LDL cholesterol 160, total cholesterol 248
Impression:
Crescendo TIA
Cerebrovascular and aortic arch atherosclerosis
Hypercholesterolemia
Suspected fibromuscular dysplasia
Plan:
Transesophageal echo requested. Given recurrent neurologic events would prefer to wait 24 hours and tentatively plan for October 08.
Agree with DAPT, statin therapy, etc. per hospitalist team and neurology.
Given tentative diagnosis of fibromuscular dysplasia, patient should be considered for CTA of chest abdomen and pelvis to exclude for FMD of renal arteries, other vascular beds. This can be considered as an outpatient.
Original Note:
Consultation
Consultation Request
Date/Time Consultation Requested: 10/06/24 11:45
Date/Time Consultation Performed: 10/06/24 14:00
Requesting Provider: Walker Macdonald MD
Performing Provider: Ovidio Hong DO (Resident); Tapan Braga MD
Reason for Consultation: Crescendo TIA; MICHAELA evaluation
Medical History
-
Chief Complaint: Unilateral Weakness, Numbness, Facial Droop
History of Present Illness:
Zuleika Donahue is a 58F with no significant PMHx to these recent events who presented to [facility] 3 days ago with focal neurologic deficits. The patient went to bed on 10/02 just before midnight in her usual state of health, and on the morning of 10/03
at approximately 0400, woke up to use the bathroom and noticed a heaviness of the left upper extremity with some weakness with hand buggy man. When returning to bed after using the restroom, she noticed the symptoms were worse with weakness, numbness and
heaviness of the LUE, as well as the same symptoms in the left lower extremity developing along with a left sided facial droop. Once her returned to bed, he noticed that she had an obvious facial droop and on recognizing stroke sx from a
billboard, called EMS. Approximately an hour had elapsed. Symptoms appeared to improve while in the ambulance, and then returned just as the ambulance entered the ED bay. Once in the ER, her symptoms began to reappear. Initial evaluation in the ED
revealed an unremarkable physical examination outside of moderate HTN to 155/87. However symptoms returned multiple times (3x) while in the ED without complete resolution (waxing/waning).
ED COURSE
CBC, coags, BMP, LFTs unremarkable.
HbA1c 5.6 TC 248 LDL 160 HDL [address] w/o IV: no acute intracranial hemorrhage, no transcortical infarct
Head/Neck CTA:
- Mild soft atherosclerotic plaque in both proximal ICAs causing less than 50% diameter stenosis
- Mild 'beaded' appearance of the mid cervical segments of both ICAs suggesting mild fibromuscular dysplasia
- No CTA evidence for vertebral artery stenosis or occlusion
- Mild hypoplasia of the cervical segment of the right vertebral artery
- 50-70% diameter stenoses in the clinoid segments of both intracranial ICAs
- Moderate hypoplasia of the right intracranial vertebral artery
- Mild hypoplasia and tortuosity of the P1 segment of the left posterior cerebral artery
HOSPITAL COURSE
Patient was given TNK at approx. 08:00, transfer to ICU.
Brain MRI: no acute infarct or intracranial hemorrhage
Status post TNK, the patient exhibited initial improvement, however this morning, the patient had another episode of upper extremity weakness. This episode was not as severe as initial presentation, and the patient noticed again, a slight heaviness
of the LUE, with subjective hand buggy man strength loss in the left handf. Neurology was consulted and patient was given a second round of TNK (10/06 11:30). STAT Head/CT did not reveal any changes.
The patient denies any recent chest pains, shortness of breath, dyspnea on exertion or dizziness. Patient does endorse that she believes she occasionally feels potential palpitations. These symptoms only come on if she drinks too much caffeine and
last only seconds at a time. Patient also endorses that once in a while, she will experience what she describes as aura like sensations, but without resultant headaches.
Patient denies a history of esophageal masses or lesions, dysphagia, odynophagia, severe reflux, or hematemesis.
Past Medical History
Past Medical History: Other (sciatica)
Past Surgical History: Orthopedic (back surgery)
Social History
Tobacco: Non-Smoker
Alcohol: None
Drug: None
Personal:
Living: With Family
Family History
Family History: Early CAD (Paternal great grandfather MA at 28. Paternal grandfather MA at 68. Father MA at 38. Maternal grandmother MA at 87. )
Allergies / Home Medications
Allergy/AdvReac Type Severity Reaction Status Date / Time
No Known Allergies Allergy Verified 08/19/20 16:52
�Medication �Instructions �Recorded �Confirmed �Type
oxycodone-acetaminophen 5 mg-325 1 tab PO Q6HPRN PRN pain #20 tabs 03/21/20 Rx
mg tablet
prednisone 20 mg tablet 40 mg (2 x 20 mg) PO DAILY 08/19/20 Rx
Anti-inflammatory #8 tabs
Review of Systems
-
History Source: Patient
All other systems: Negative unless noted
Physical Exam
Vital Signs
Temp Pulse Resp BP Pulse Ox
98.2 F 52 17 137/67 95
10/06/24 08:00 10/06/24 13:00 10/06/24 13:00 10/06/24 13:00 10/06/24 08:00
Lab Results
10/05/24 05:05
10/05/24 06:00
Troponin I < 0.012 ng/ml 10/04/24 06:01
Physical Exam
General: Well Developed, Well Nourished, No Apparent Distress and Comfortable
HEENT: Normocephalic and Anicteric
Respiratory: Clear
Cardiac: S1/S2, Regular Rhythm and Other (no carotid bruits); Negative Peripheral Edema, Calf Tenderness or Sarkis's Sign
GI: Soft
Musculoskeletal: No Edema
Skin: Warm
Neuro: Awake and No Motor Deficits
Psych: Calm
Impression / Plan
-
Zuleika Donahue is a 58F with no significant past medical history to recent events who presented to the hospital 3 days ago with acute onset LUE tingling, weakness and numbness, along with LLE weakness and left sided facial droop with waxing and
waning severity between onset and admission to the ICU. She is s/p TNK on 10/04 with imaging negative for infarct or hemorrhage, but showing atherosclerotic disease of the bilateral internal carotids. After initial improvement s/p TNK, patient had
return of symptoms this AM provocating another round of TNK. We were consulted for evaluation for MICHAELA. Given the patient's waxing and waning symptoms, evaluation of potential embolic sources would be prudent, however yield may be low, given symptoms
may more likely be attributed to carotid vascular disease.
Plan
- Agree with high intensity statin and buttermaker continuous churn antiplatelet therapy as outlined by neurology.
- MICHAELA with saline agitation study once OKed by neurology (s/p TNK)
- Continue with BP management
- Consider future whole body screening for other manifestations of fibromuscular dysplasia
Data Reviewed
-
EKG: Tracing Personally Visualized and interpreted and Report Reviewed by me
CT Scan: Report Reviewed by me
MRI: Report Reviewed by me
Labs: Labs Reviewed by me
Old Records: Reviewed (Telemetry reviewed. )
--- NOTE | 2024-10-06 16:30 | PTCARENOTE ---
Reassessed the patient, neuro status unchanged from previous. Patient reported feeling better overall.
[2024-10-06] MEDS: LIPITOR 80 MG PO (18:07)
--- NOTE | 2024-10-06 22:36 | EEG.RPT ---
Electroencephalogram Report
Recording
Date of EE10/06/24
Type of EEG: Routine
Length of EEG recordin mins
Done with Video Recording: Yes
Patient Status: Inpatient
Recording Conditions: Awake and Drowsy
Hyperventilation Performed: Yes
Photic Stimulation Performed: Yes
Report
Clinical Background:�recurrent TIA
Introduction: A routine bedside EEG was done using International 10-20 electrode placement protocol.
Background: In the most alert state, the PDR is 9-10 Hz in frequency with normal amplitude. There is spontaneous variability and reactivity.�prominent lambda waves. excess generalized beta.
Sleep: No sleep is seen.�
Focal/epileptiform: There were no focal or epileptiform discharges. No clinical or electrographic seizures occurred during this recording.
Photic stimulation: resulted in normal driving response. There was no photo myogenic or photoparoxysmal response.�
Impression: Normal EEG. generalized beta can be can be seen with medical conditions such as hyperthyroid, benzodiazepines, alcohol, anxiety, or be a normal variant.
[2024-10-06] MEDS: MELATONIN 5 MG PO (22:44)
[2024-10-07] VITALS (22 sets, daily range): BP systolic 94–161; BP diastolic 60–129; PULSE 87; BMI 30.9
--- NOTE | 2024-10-07 02:00 | PTCARENOTE ---
Pt received at 19:00, handoff NIH completed. NIH = 0. Pt previously ambulatory in room, steady stand and pivot to [facility] [place]. SR-sinus champ. RA, breath sounds clear t/o. +BS, no BM noted this shift, LBM - 10/05. Clear yellow urine. Scattered bruising to
B/L upper arms, posterior knees, and anterior upper legs. Safe environment maintained, call ng within reach, repositioning self.
[2024-10-07 04:48] LABS: Hematocrit 39.0 % (37.0-47.0); Hemoglobin 13.0 g/dL (12.0-16.0); Mean Corp Hgb Conc. 33.3 g/dL (33.0-37.0); Mean Corpuscular Volume 83.0 fL (81.0-99.0); Platelet Count 252 10^3/uL (130-400); Red Cell Dist. Width 13.0 % (11.5-14.5)
[2024-10-07 05:14] LABS: Blood Urea Nitrogen 19 mg/dl (7-17); Calcium 9.5 mg/dl (8.4-10.2); Carbon Dioxide 25 mmol/L (22-30); Chloride 107 mmol/L (98-107); Estimated Creatinine Clearance 105 ml/min; Glucose 100 mg/dl (70-99); Magnesium 2.1 mg/dl (1.6-2.3); Potassium 4.3 mmol/L (3.5-5.1); Sodium 139 mmol/L (135-145); eGFR > 60.00
--- NOTE | 2024-10-07 07:30 | PTCARENOTE ---
Received patient A&Ox4, NIH 0, on RA, NSR, BP WNL, GI/ continent, ecchymosis noted in B/L Upper Arms, B/L thighs, and B/L posterior Knees.
--- NOTE | 2024-10-07 08:19 | W.PN.CARDCBS ---
Today's Communication / Plan
-
Transesophageal echo in a.m.
Impression / Plan
-
Impression:
Crescendo TIA
Cerebrovascular and aortic arch atherosclerosis
Hypercholesterolemia
Suspected fibromuscular dysplasia
Plan
Despite crescendo TIA, with administration of tenecteplase x 2, she looks well at present and is without focal neurologic deficits.
Antiplatelet/anticoagulant regimen per hospitalist and neurology.
She is now on high-dose statin therapy
No ectopy/A-fib seen on monitor.
She is normotensive.Not on antihypertensive therapy.
Goal will be stabilization of cerebrovascular plaque with LDL target of less than 60.
Importance of lifestyle modification reviewed with patient's.
Favor CTA of chest abdomen and pelvis given presence of FMD on cerebrovascular imaging.
Will proceed with transesophageal echo in a.m. as per neurology request.
Clinical summary: 58F with no significant past medical history who presented to the hospital 3 days ago with acute onset LUE tingling, weakness and numbness, along with LLE weakness and left sided facial droop with waxing and waning severity between
onset and admission to the ICU. She is s/p TNK on 10/04 with imaging negative for infarct or hemorrhage, but showing atherosclerotic disease of the bilateral internal carotids. After initial improvement s/p TNK, patient had return of symptoms 10/06
prompting another round of TNK. We were consulted for evaluation for MICHAELA.
Progress Note - Geological Technical Officer
Subjective
Date of Service: October 07, 2024:
58-year-old woman admitted to [facility] 10/03/2024 with left upper extremity weakness and left facial droop who presented to [facility] with waxing and symptoms ultimately receiving TNK for right hemispheric CVA. Head and neck CTA suggest soft
plaque in both carotids with suspected fibromuscular dysplasia. Patient had an excellent clinical response but recurrent symptoms 8 AM and was again treated with TNK with resolution of symptoms. Transesophageal echo has been requested.
PMH: Sciatica, hypercholesterolemia, suspected visual migraines, history of back surgery
Medications: Aspirin 325 mg daily, Plavix 75 mg daily, atorvastatin 80 mg daily and melatonin
106/73, pulse 59, resp rate 14, afebrile, weight is 78.8 kg, head neck exam unremarkable, lungs are clear, regular rate rhythm without murmurs abdomen benign neuro nonfocal extremities without clubbing cyanosis or edema
Hemoglobin is 13, BUN/creatinine are 19 and 0.6, glucose is 100 echo: Borderline LVH, EF 60-65%, mild mitral leaflet thickening without regurgitation, aortic sclerosis with trace AI, normal right heart, some atherosclerosis of aortic arch may be
present
Objective
Labs:
10/07/24 04:38
10/07/24 04:38
Labs
Hgb 13.0 g/dL (12.0-16.0) 10/07/24 04:38
Hct 39.0 % (37.0-47.0) 10/07/24 04:38
Plt Count 252 10^3/uL (130-400) 10/07/24 04:38
PT 13.4 Sec (11.4-14.6) 10/05/24 05:05
INR 0.99 10/05/24 05:05
APTT 28.8 Sec (23.4-35.0) 10/05/24 05:05
Sodium 139 mmol/L (135-145) 10/07/24 04:38
Potassium 4.3 mmol/L (3.5-5.1) 10/07/24 04:38
BUN 19 mg/dl (7-17) H 10/07/24 04:38
Creatinine 0.6 mg/dL (0.6-1.0) 10/07/24 04:38
Glucose 100 mg/dl (70-99) H 10/07/24 04:38
Vital Signs and I&O:
Vital Signs
Temp Pulse Resp BP Pulse Ox
36.8 C 59 14 106/73 96
10/06/24 16:00 10/07/24 06:00 10/07/24 06:00 10/07/24 06:00 10/07/24 06:26
Vital Signs
Temp Pulse Resp BP Pulse Ox
36.8 C 59 14 106/73 96
10/06/24 16:00 10/07/24 06:00 10/07/24 06:00 10/07/24 06:00 10/07/24 06:26
Intake & Output
10/05/24 10/06/24 10/07/24 10/08/24
07:59 07:59 07:59 07:59
Intake Total 358 / 358 1200 / 1200 480 / 480
Output Total 1275 / 1275
Balance -917 / -917 1200 / 1200 480 / 480
Physical Exam
Physical Exam
See above
--- NOTE | 2024-10-07 11:11 | PN.CDI ---
CDI
- -
CDI:
Physician Documentation Request
Admit Date: 10/04/24 08:52
Dear Doctor Do,
Please review the following and provide your response in the progress notes.
Clinical Indicators:
The diagnosis of Leukoaraiosis and spinal cord compression was included in the signed Brain MRI, 10/05/2024.
PROCEDURE: MR Brain Without Contrast
FINDINGS:
#...mild amount of low T1 and high T2/FLAIR signal intensity
#...periventricular white matter leukoaraiosis in the frontal lobes.
#...small central disc herniation at C4/C5 causing mild spinal cord compression
#...and central canal stenosis.
#IMPRESSION:
#...2. 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
Please indicate in the progress notes the above diagnosis is valid for this patient:
Leukoaraiosis and spinal cord compression is a valid diagnosis (Please include it in your progress notes)
Leukoaraiosis and spinal cord compression is not a valid diagnosis for this patient
Leukoaraiosis and spinal cord compression is not yet confirmed but remains a suspected condition
Other(please specify)
Use of terms such as suspected, likely, concern for, or probable are acceptable for a diagnosis that is being evaluated, monitored or treated as if it exists and can be coded in the inpatient setting, when documented at the time of discharge.
Thank you,
Chantel Christine RN BSN CCDS
CDI Specialist
Please contact via tiger text
Please use your independent medical judgment in providing your response.
--- NOTE | 2024-10-07 12:08 | PTCARENOTE ---
Reassessed the patient, no changes from previous assessments. Strict bedrest period is over, patient now can do activities per tolerance.
--- NOTE | 2024-10-07 12:34 | CM ---
senior category manager reviewed patient's chart and met with patient this am, plan is for patient to return to home when stable, recommendation from PT/OT is outpatient therapy, patient will need script at discharge.
Plan; Home when stable, needs script for outpatient PT/OT.
--- NOTE | 2024-10-07 13:16 | PTOTSP ---
The patient is independent with ambulation and elevations, no strength/coordination deficits noted. No PT needs identified at this time, will sign off.
--- NOTE | 2024-10-07 13:46 | W.PN.HOSP.TC ---
Today's Communication/Plan
-
Stable for telemetry
For MICHAELA tomorrow
Assessment / Plan
Assessment / Plan
#Crescendo TIA
#Cerebrovascular and aortic arch atherosclerosis
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
Patient presents with recurrent episodes of TIA so far 5 involving the left facial droop and left upper and lower extremity heaviness and weakness. NIH [address] of the head shows no evidence of stroke. CTA of the head and neck shows bilateral intracranial ICA narrowing of 50 to 70% but no evidence of large vessel occlusion.
Status post TNK 10/04
Status post repeat TNK 10/06
Appreciate neurology and metallurgical analyst input, okay to resume aspirin 325 mg daily and Plavix 75 mg daily
Continue Lipitor 80 mg at bedtime, plan for MICHAELA with cardiology tomorrow, EEG requested
PT -patient is independent
#Hyperlipidemia
Total cholesterol 248, LDL 160
Lipitor 80 mg at bedtime as above
#Suspected fibromuscular dysplasia
CT of the chest/abdomen/pelvis angiogram requested
DVT prophylaxis -Lovenox
Full Code
Updated son on phone 10/06
Total time spent to see the patient on the floor, examine the patient, review data and lab results, discuss treatment plan with patient, nursing staff around 40 minutes.
Physical Exam
General: No acute distress
HEENT: Normocephalic, Atraumatic, EOMI, MMM
Respiratory: Clear to Auscultation bilaterally
Cardiac: Normal S1/S2, Regular Rate and Rhythm
GI: Soft, Nontender, Nondistended, Normal Bowel Sounds
Extremities: No Clubbing, Cyanosis, or Edema
Neuro: No focal deficits noted
Anticipated Discharge: 24 - 48 hours
Subjective/Interval History
-
Date of Service: October 07, 2024
Patient reports her left arm heaviness, and paresthesia have resolved. She feels back to normal. Denies headache, denies vision changes. No fever, no vomiting.
Objective Data
-
Labs:
Laboratory Results
10/07/24
04:38
WBC 9.3
Hgb 13.0
Hct 39.0
Plt Count 252
Sodium 139
Potassium 4.3
Chloride 107
Carbon Dioxide 25
BUN 19 H
Creatinine 0.6
Glucose 100 H
Calcium 9.5
Vital Signs:
Vital Signs
Temp Pulse Resp BP Pulse Ox
98.0 F 60 16 115/82 99
10/07/24 12:01 10/07/24 12:00 10/07/24 12:00 10/07/24 12:00 10/07/24 09:30
I&O
10/06/24 10/07/24 10/08/24
06:59 06:59 06:59
Intake Total 1200 / 1200 480 / 480
Balance 1200 / 1200 480 / 480
[2024-10-07] MEDS: PLAVIX 75 MG PO (13:49)
[2024-10-07] MEDS: ASPIRIN 325 MG PO (13:49)
--- NOTE | 2024-10-07 14:10 | W.PN.INTV ---
Today's Communication / Plan
Recommendations
- Patient stable for transfer to telemetry
- Financial Services Internship service will sign off, please call as needed
Assessment
-
58-year-old female without medical history presents with acute onset left arm tingling/heaviness/weakness along with left leg weakness, left facial droop, waxing and waning started around 3:30 AM. Given progressive symptoms, TNK was administered at
approximately 8:05 AM, admitted to ICU for further monitoring.
Patient had good response to TNK with resolution of her symptoms. On 10/06, patient had another episode of left upper weakness which somewhat improved but did not fully resolve. Neurology reevaluated the patient and decision was made to proceed
with a second round of TNK and patient was upgraded back to ICU status.
Conditions present prior to admission
History of sciatica
History of back surgery
Assessment and plan:
#1. Recurrent TIA with new deficit 10/06.
- Neuro deficit has since resolved. Patient at baseline.
- Neurology service re-evaluated 10/06 and patient received second dose of TNK. Stat CT head 10/06, without acute change, hemodynamically stable
- MRI earlier this admission negative for acute CVA
- 50 to 70% bilateral ICA stenosis
- Neurochecks per protocol
- Per neurology, resuming antiplatelet therapy.
#2. Carotid artery disease
- B/L 50-70% diameter stenosis on imaging
- Has been on ASA/Plavix and Statins.
Add subcu Lovenox for DVT prophylaxis
Monitor for bleeding
Critical Care time 36 mins -- The patient is admitted for acute critical illness for the treatment of vital organ failure and/or prevention of further life-threatening conditions. Total care includes time spent in review of history, physical exam,
medications, hemodynamic/ventilator parameters, laboratory data, imaging and discussion with house staff, pharmacy, respiratory therapy, fork lift truck operator, and nursing.
Subjective Dataa
Subjective Data
Date of Service:
Date of Service: October 07, 2024
Subjective:
Patient comfortably sitting in bed in no acute distress.
Review of Systems
Genitourinary: Other (All 14 systems reviewed and negative except as stated above in the history of present illness.)
Objective Data
Data Reviewed
Vital Signs / I&O / Oxygen:
Vital Signs
Temp Pulse Resp BP Pulse Ox
98.0 F 60 16 115/82 99
10/07/24 12:01 10/07/24 12:00 10/07/24 12:00 10/07/24 12:00 10/07/24 09:30
Intake and Output
10/06/24 10/07/24 10/08/24
06:59 06:59 06:59
Intake Total 1200 / 1200 480 / 480
Balance 1200 / 1200 480 / 480
SaO2 99
Physical Exam
General: Comfortable
HEENT: Normocephalic and Anicteric
Cardiovascular: S1-S2, Regular Rhythm, Murmur (n) and Rub (n)
Respiratory: Wheeze (n), Crackles (n), Rhonchi and Non-Labored Respirations
GI: Soft and Distended
Neurology: Awake, Alert and Other (Deficit resolved, normal exam)
Skin: Good Color and Cyanosis (n)
Labs/Micro/Reports
Lab Data
10/07/24 04:38
10/07/24 04:38
[2024-10-07] MEDS: LOVENOX 40 MG SC (17:22)
[2024-10-07] MEDS: LIPITOR 80 MG PO (17:22)
[2024-10-07] MEDS: MELATONIN 5 MG PO (22:35)
[2024-10-08 03:20] VITALS: BP 146/89
[2024-10-08] MEDS: PLAVIX 75 MG PO (07:46)
[2024-10-08] MEDS: ASPIRIN 325 MG PO (07:46)
[2024-10-08 07:53] VITALS: BP 124/73
[2024-10-08 08:35] LABS: Hematocrit 39.0 % (37.0-47.0); Hemoglobin 12.8 g/dL (12.0-16.0); Mean Corp Hgb Conc. 32.8 g/dL (33.0-37.0); Mean Corpuscular Volume 84.2 fL (81.0-99.0); Platelet Count 265 10^3/uL (130-400); Red Cell Dist. Width 13.0 % (11.5-14.5)
--- NOTE | 2024-10-08 09:15 | W.PN.HOSP.TC ---
Today's Communication/Plan
-
Discharge today
Assessment / Plan
Assessment / Plan
#Crescendo TIA
#Cerebrovascular and aortic arch atherosclerosis
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
Patient presents with recurrent episodes of TIA so far 5 involving the left facial droop and left upper and lower extremity heaviness and weakness. NIH [address] of the head shows no evidence of stroke. CTA of the head and neck shows bilateral intracranial ICA narrowing of 50 to 70% but no evidence of large vessel occlusion.
Status post TNK 10/04. Status post repeat TNK 10/06
Appreciate neurology and psychometrician input, okay to resume aspirin 325 mg daily and Plavix 75 mg daily 10/07
Neurology recommends aspirin for life, and Plavix for total of 90 days. Continue Lipitor 80 mg at bedtime
Appreciate cardiology input, MICHAELA overall stable, cardiology will arrange for outpatient 7-day heart monitor
PT -patient is independent
Medically stable for discharge today
#Hyperlipidemia
Total cholesterol 248, LDL 160
Lipitor 80 mg at bedtime as above
Consult sed middle school teacher to provide dietary education prior to discharge
#Suspected fibromuscular dysplasia
CT of the chest/abdomen/pelvis angiogram reviewed
#Pancreatic cyst
Outpatient follow-up recommended with GI
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
Patient is completely asymptomatic
DVT prophylaxis -Lovenox
Full Code
Updated son on phone 10/06
Physical Exam
General: No acute distress
HEENT: Normocephalic, Atraumatic, EOMI, MMM
Respiratory: Clear to Auscultation bilaterally
Cardiac: Normal S1/S2, Regular Rate and Rhythm
GI: Soft, Nontender, Nondistended, Normal Bowel Sounds
Extremities: No Clubbing, Cyanosis, or Edema
Neuro: No focal deficits noted
Anticipated Discharge: Today
Subjective/Interval History
-
Date of Service: October 07, 2024
No recurrence of neurologic symptoms. She reports feeling 100% back to normal. No fever, no vomiting.
Objective Data
-
Labs:
Laboratory Results
10/07/24
04:38
WBC 9.3
Hgb 13.0
Hct 39.0
Plt Count 252
Sodium 139
Potassium 4.3
Chloride 107
Carbon Dioxide 25
BUN 19 H
Creatinine 0.6
Glucose 100 H
Calcium 9.5
Vital Signs:
Vital Signs
Temp Pulse Resp BP Pulse Ox
98.0 F 60 16 115/82 99
10/07/24 12:01 10/07/24 12:00 10/07/24 12:00 10/07/24 12:00 10/07/24 09:30
I&O
10/06/24 10/07/24 10/08/24
06:59 06:59 06:59
Intake Total 1200 / 1200 480 / 480
Balance 1200 / 1200 480 / 480
[2024-10-08 11:18] VITALS: BP 122/67
--- NOTE | 2024-10-08 11:39 | CM ---
Following up on patient today. CM Dept not sure when patient is ready.
PT/OT saw patient and now stating that there are no need for outpatient services.
Janitor Supervisor, Jaron met with patient who was fine with not having to attend outpatient services. Patient has transportation home and aware that RN will let her know when the team is ready to discharge her.
Plan: No IMM needed and home no needs.
--- NOTE | 2024-10-08 15:12 | W.PN.CARDCBS ---
Today's Communication / Plan
-
MICHAELA overall stable. Okay for discharge.
Will arrange follow-up and outpatient 7-day heart monitor to look for paroxysmal atrial fibrillation.
She will also likely need further imaging of her aorta/renal artery with possible fibromuscular dysplasia.
Continue aspirin, Plavix, and atorvastatin
Impression / Plan
-
Impression:
Crescendo TIA
Cerebrovascular and aortic arch atherosclerosis
Hypercholesterolemia
Suspected fibromuscular dysplasia
MICHAELA: No clear cardiac source of emboli.
Plan
MICHAELA with preserved ejection fraction and no cardiac source of emboli.
Okay for discharge from cardiology standpoint. Agree with adding statin, atorvastatin 80 mg daily.
Sinew aspirin and Plavix per neurology.
Will arrange follow-up in outpatient asset accountant.
She is normotensive.Not on antihypertensive therapy.
Goal will be stabilization of cerebrovascular plaque with LDL target of less than 60.
Importance of lifestyle modification reviewed with patient's.
Favor CTA of chest abdomen and pelvis given presence of FMD on cerebrovascular imaging.
Clinical summary: 58F with no significant past medical history who presented to the hospital 3 days ago with acute onset LUE tingling, weakness and numbness, along with LLE weakness and left sided facial droop with waxing and waning severity between
onset and admission to the ICU. She is s/p TNK on 10/04 with imaging negative for infarct or hemorrhage, but showing atherosclerotic disease of the bilateral internal carotids. After initial improvement s/p TNK, patient had return of symptoms 10/06
prompting another round of TNK. We were consulted for evaluation for MICHAELA.
Progress Note - Feed Mill Tender
Subjective
Date of Service: October 08, 2024
Denies chest pains or shortness of breath. No new strokelike symptoms.
Objective
Labs:
10/08/24 07:28
10/07/24 04:38
Labs
Hgb 12.8 g/dL (12.0-16.0) 10/08/24 07:28
Hct 39.0 % (37.0-47.0) 10/08/24 07:28
Plt Count 265 10^3/uL (130-400) 10/08/24 07:28
PT 13.4 Sec (11.4-14.6) 10/05/24 05:05
INR 0.99 10/05/24 05:05
APTT 28.8 Sec (23.4-35.0) 10/05/24 05:05
Sodium 139 mmol/L (135-145) 10/07/24 04:38
Potassium 4.3 mmol/L (3.5-5.1) 10/07/24 04:38
BUN 19 mg/dl (7-17) H 10/07/24 04:38
Creatinine 0.6 mg/dL (0.6-1.0) 10/07/24 04:38
Glucose 100 mg/dl (70-99) H 10/07/24 04:38
Vital Signs and I&O:
Vital Signs
Temp Pulse Resp BP Pulse Ox
98.2 F 66 16 122/67 100
10/08/24 11:18 10/08/24 11:18 10/08/24 11:18 10/08/24 11:18 10/08/24 11:18
Vital Signs
Temp Pulse Resp BP Pulse Ox
98.2 F 66 16 122/67 100
10/08/24 11:18 10/08/24 11:18 10/08/24 11:18 10/08/24 11:18 10/08/24 11:18
Intake & Output
10/06/24 10/07/24 10/08/24 10/09/24
06:59 06:59 06:59 06:59
Intake Total 1200 / 1200 480 / 480
Output Total 550 / 550
Balance 1200 / 1200 480 / 480 -550 / -550
Physical Exam
Physical Exam
GEN: No distress, awake, Ox3
HEENT: supple, anicteric, mmm
LUNGS: CTA, no wheezes/rales
CV: Reg, S1/S2, 1/6 syst LSB, no gallop
ABD: soft, BS+, NT/ND
EXT: No edema
NEURO: Gross non-focal
SKIN: No rash
[2024-10-08 15:13] VITALS: BP 150/83
--- NOTE | 2024-10-08 15:37 | W.DCSUMMARY ---
Discharge Summary
Discharge Data
Date of Admission: 10/04/24
Date of Discharge: 10/08/24
-
Pending Results: No
Hospital Course
Discharge diagnosis:
Crescendo transient ischemic attack
Cerebrovascular and aortic arch atherosclerosis
Hyperlipidemia
Suspected fibromuscular dysplasia
Pancreatic cyst
Leukoaraiosis and mild spinal cord compression seen on imaging, asymptomatic
Obesity due to excess calorie
Consults: Neurology, diver's tender, cardiology
Procedures:
10/08/2024 MICHAELA unremarkable
Brain MRI:
1. No MRI evidence for acute infarct or intracranial hemorrhage.
2. 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
3. Mild diffuse cerebral and cerebellar volume loss.
Chest/abd/pelvis CTA:
1. Subtle mildly beaded appearance of the left renal artery probably related to fibromuscular dysplasia. No other findings suggestive of fibromuscular dysplasia.
2. Negative for aortic aneurysmal dilation. Minimal calcific atherosclerotic changes of the abdominal aorta.
3. Approximately 1 cm cystic focus along the pancreatic head. There are varying recommendations for follow-up of incidentally detected pancreatic cystic lesions. ACR white paper 2017 recommends annual surveillance x 5 years followed by imaging
every 2 years x 2 if the cyst remains below 1.5 cm in size.
Hospital course:
58-year-old female with a past medical history of obesity presented with left sided heaviness/weakness/paresthesia, and was admitted for crescendo transient ischemic attack. Patient was seen in conjunction with neurology and the diver's tender, and
received TNK on the day of admission on 10/04/2024. She was monitored in the ICU. Brain MRI was negative for acute stroke. Her LDL was elevated at 160, total cholesterol 248. She was started on Lipitor 80 mg at bedtime. Neurology recommends
treatment with aspirin 325 mg daily for life, and Plavix 75 mg daily for 90 days through 10/07/2024.
On the morning of 10/06/2024, patient began to have recurrence of her left-sided heaviness. She was seen urgently by neurology, and received TNK again. She was monitored in the ICU for 24 hours. Her symptoms resolved. She did not have any
residual symptoms. She was seen by PT, and was independent.
Patient was seen in conjunction with cardiology for MICHAELA. Per cardiology, MICHAELA was unremarkable. Patient had a chest/abdomen/pelvis CTA due to suspected fibromuscular dysplasia. It shows a pancreatic cyst and possible fibromuscular dysplasia of the
left renal artery. She has been instructed to follow-up with GI in the office for monitoring of her pancreatic cyst. She will also follow-up with cardiology in the office for further imaging for suspected fibromuscular dysplasia. Cardiology will
arrange for outpatient 7-day heart monitor to look for paroxysmal atrial fibrillation.
Patient is medically stable for discharge. She needs to follow-up with her PCP in 1 week, neurology/cardiology in 2-3 weeks, and GI in 1-2 months.
Disposition: Home self-care
Discharge planning: Required 45 minutes
Discharge Plan
-
Patient Disposition: Home (Routine Discharge)
Discharge Diagnosis/Procedures: Crescendo transient ischemic attack, hyperlipidemia, pancreatic cyst
Condition: Fair
Diet: Low Fat and Low Cholesterol
Activity: As tolerated
Driving Restrictions: As prior to admission
Others Tests: recommend home sleep study to screen for sleep apnea due to stroke hx
Activity Restrictions/Additional Instructions:
Neurology recommends you take aspirin 325 mg daily, atorvastatin 80 mg every afternoon.
You also need to take clopidogrel 75 mg daily for 87 days, then stop.
You have an incidental finding of an asymptomatic cyst in your pancreas. The cyst is a benign, fluid-filled sac.
Recommend you follow-up with GI in the office for annual monitoring.
Please follow-up with cardiology, a neurologist, and your primary care doctor in 1 week.
Instructions: Transient ischemic attack, Can foods or supplements lower cholesterol?, Low-fat diet, Low-carbohydrate diet
Referrals:
Isaac Baum DO [Family Provider, Family Practice] - in one week
,Fabiola Morales MD [Active, Gastroenterology] - in one to two months
Tapan Braga MD [Active, Cardiology] - in two to three weeks
Prescriptions:
New
aspirin 325 mg Tablet
325 mg PO DAILY Qty: 90 0RF
atorvastatin 80 mg Tablet
80 mg PO QPM Qty: 90 0RF
clopidogrel 75 mg Tablet
75 mg PO DAILY Qty: 87 0RF
Discontinued
oxycodone-acetaminophen 5 MG/325 MG tablet
1 tab PO Q6HPRN PRN (Reason: pain) Qty: 20 0RF
prednisone 20 MG tablet
40 mg PO DAILY Qty: 8 0RF
Discharge Orders:
Discharge Patient (As Directed); Ordered 10/08/24
Ordered By: Balbir Yoder
Discharge Date and Time
Discharge Date/Time: 10/08/24 16:09
Print Language: EMIRATI
== END 2024-10-08 16:09 | disposition home or self-care (01) | DRG 62 ==
LOC: 4 WEST ACU 08:52
PROVIDERS: Internal Medicine Cardiovascular Disease; Nurse Practitioner Primary Care; Student in an Organized Health Care Education/Training Program; ADMITTING PHYSICIAN Internal Medicine; ATTENDING PHYSICIAN Family Medicine; CONSULT PHYSICIAN Internal Medicine Cardiovascular Disease; CONSULT PHYSICIAN Internal Medicine Critical Care Medicine; CONSULT PHYSICIAN Psychiatry & Neurology Clinical Neurophysiology; EMERGENCY PHYSICIAN Emergency Medicine; FAMILY PHYSICIAN Family Medicine
PROC: 3E03317 Introduction of Other Thrombolytic into Peripheral Vein, Percutaneous Approach (ICD-10-PCS; 2024-10-04)
PROC: B24BZZ4 Ultrasonography of Heart with Aorta, Transesophageal (ICD-10-PCS; 2024-10-08)
DX: I65.23 Occlusion and stenosis of bilateral carotid arteries (principal); G95.20 Unspecified cord compression; K86.2 Cyst of pancreas; I67.81 Acute cerebrovascular insufficiency; I70.0 Atherosclerosis of aorta; E78.00 Pure hypercholesterolemia, unspecified; I77.3 Arterial fibromuscular dysplasia; R29.703 NIHSS score 3; R29.810 Facial weakness; M54.30 Sciatica, unspecified side; E66.09 Other obesity due to excess calories; Z68.30 Body mass index [BMI] 30.0-30.9, adult
CPT/HCPCS: 0042T; 70450; 70496; 70498; 70551; 71045; 71275; 74174; 80048; 80053; 80061; 82962; 83036; 83735; 84484; 85025; 85027; 85610; 85730; 92523; 93005; 93306; 93312; 93320; 93325; 95816; 96374; 97163; 97164; 97167; 97168; 99291; J3101; Q9967